=== PATIENT | female | born 1975 | race Caucasian/White ===

== ENCOUNTER 2019-12-19 06:20 | Inpatient (IN) | payer BC, OTHER ==
[2019-12-19] MEDS: ELECTROLYTE-148 SOLN 1,000 ML IV SCH ×3 (07:15→09:40)
[2019-12-19 07:56] VITALS: BMI 31.8
[2019-12-19] MEDS ORDERED: ELECTROLYTE-148 SOLN 500 ML IV ONE (08:06)
[2019-12-19] MEDS ORDERED: CITRIC ACID/SODIUM CITRATE 30 ML UNIT-DOSE CUP PO ONE (08:06)
[2019-12-19] MEDS ORDERED: morphine SULFATE/PF 0.5 MG/ML (2cc Syringe - QUVA) ONE (08:09)
[2019-12-19] MEDS ORDERED: PROPOFOL 20 ML ONE (08:10)
[2019-12-19] MEDS ORDERED: ePHEDrine SULFATE 50 MG/1 ML AMPULE ONE (08:28)
[2019-12-19] MEDS ORDERED: OXYTOCIN 20 UNITS in 0.9% NS 20 UNIT/1,000 ML INFUS.BAG IV ONE (09:21)
[2019-12-19] MEDS ORDERED: METHYLERGONOVINE MALEATE 0.2 MG/1 ML AMP IM PRN (09:43)
[2019-12-19] MEDS ORDERED: oxyCODONE HCL 5 MG TABLET PO PRN (09:43)
[2019-12-19] MEDS ORDERED: ONDANSETRON 4 MG/2 ML VIAL IVPUSH PRN (09:48)
[2019-12-19] MEDS ORDERED: morphine SULFATE/PF 0.5 MG/ML (2cc Syringe - QUVA) EP ONE (09:48)
[2019-12-19] MEDS: IBUPROFEN 800 MG/8 ML IJ IVPB PRN (11:28)
[2019-12-19] MEDS: PRENATAL VITAMINS W/ FOLIC ACID TABLET (FP) PO SCH (12:02)
[2019-12-19] MEDS: SIMETHICONE 80 MG TAB.CHEW (FP) PO PRN (17:53)
[2019-12-19] MEDS: ACETAMINOPHEN 325 MG TABLET (FP) PO PRN (17:54)
[2019-12-19] MEDS: OXYTOCIN 20 UNITS in 0.9% NS 20 UNIT/1,000 ML INFUS.BAG IV SCH (18:01)
[2019-12-19] MEDS ORDERED: SENNOSIDES/DOCUSATE COMBO (SENNA PLUS) TABLET (UD) PO PRN (22:00)
[2019-12-20] MEDS: oxyCODONE HCL 5 MG TABLET PO PRN ×3 (02:14→20:43)
[2019-12-20] MEDS: ACETAMINOPHEN 325 MG TABLET (FP) PO PRN ×3 (02:14→20:42)
[2019-12-20] MEDS: IBUPROFEN 800 MG/8 ML IJ IVPB PRN (05:46)
[2019-12-20 08:34] LABS: BASO % 0.3 % (0-2.0); EOS % 1.1 % (0-4.5); HEMATOCRIT 31.6 % (32.4-45.2); HEMOGLOBIN 10.4 GM/dL (10.7-15.3); LYMPH % 11.4 % (8-40); MCH 26.8 pg (25.7-33.7); MCHC 32.9 g/dl (32.0-36.0); MEAN CELL VOLUME 81.4 fl (80-96); MEAN PLT VOLUME 8.7 fl (7.5-11.1); MONO % 5.4 % (3.8-10.2); NEUT % 81.8 % (42.8-82.8); PLATELET COUNT 129 K/MM3 (134-434); RBC 3.88 M/mm3 (3.60-5.2); RDW 14.3 % (11.6-15.6)
[2019-12-20] MEDS ORDERED: BISACODYL 10 MG SUPP.RECT RC PRN (09:43)
[2019-12-20] MEDS: PRENATAL VITAMINS W/ FOLIC ACID TABLET (FP) PO SCH (10:02)
[2019-12-20] MEDS: SIMETHICONE 80 MG TAB.CHEW (FP) PO PRN ×2 (10:04→16:21)
[2019-12-20] MEDS: OXYTOCIN 20 UNITS in 0.9% NS 20 UNIT/1,000 ML INFUS.BAG IV SCH (10:11)
[2019-12-20] MEDS: IBUPROFEN 600 MG TABLET (FP) PO PRN (16:20)
[2019-12-21] MEDS: IBUPROFEN 600 MG TABLET (FP) PO PRN ×2 (00:02→06:03)
[2019-12-21] MEDS: ACETAMINOPHEN 325 MG TABLET (FP) PO PRN ×2 (03:10→08:38)
[2019-12-21] MEDS: oxyCODONE HCL 5 MG TABLET PO PRN (03:10)
[2019-12-21] MEDS: SIMETHICONE 80 MG TAB.CHEW (FP) PO PRN (08:38)
[2019-12-21] MEDS: PRENATAL VITAMINS W/ FOLIC ACID TABLET (FP) PO SCH (09:06)
[2019-12-21 11:54] VITALS: BP 114/78; PULSE 105; TEMP 98.1
== END 2019-12-21 12:55 | disposition home or self-care (01) | DRG 540 ==
LOC: JLDR 06:20 → J3W 11:00
PROVIDERS: ADMIT Obstetrics & Gynecology; ATTEND Obstetrics & Gynecology
PROC: 10D00Z1 Extraction of Products of Conception, Low, Open Approach (ICD-10-PCS; principal; 2019-12-19)
DX: O32.2XX0 Maternal care for transverse and oblique lie, not applicable or unspecified (principal); O34.211 Maternal care for low transverse scar from previous cesarean delivery; O34.593 Maternal care for other abnormalities of gravid uterus, third trimester; Q51.3 Bicornate uterus; N73.6 Female pelvic peritoneal adhesions (postinfective); Z37.0 Single live birth; Z3A.38 38 weeks gestation of pregnancy
CPT/HCPCS: 36415; 85025; 88307-TC